=== PATIENT | female | born 1930 | race African-American/Black ===

== ENCOUNTER 2018-09-04 11:18 | Emergency (ER) | payer MEDICARE ==
[~2018-09-04] VITALS: Ht 165.1 cm; Wt 100.0 kg
[~2018-09-04 11:18] MED LIST: LOSA25TA2 PO; LOSA25TA41 PO
[2018-09-04] MEDS ORDERED: LIDOCAINE 1% 10 ML VIAL INJ ONE (11:30)
[2018-09-04] MEDS ORDERED: ACETAMINOPHEN 325 MG TABLET PO ONE (11:30)
[2018-09-04] MEDS ORDERED: AMLO10TA7 PO (11:37)
[2018-09-04] MEDS ORDERED: BACITRACIN 0.9 GM PACKET OINTMENT TP ONE ×2 (12:39→12:45)
[2018-09-04 13:31] VITALS: BP 172/75
== END 2018-09-04 13:33 | disposition home or self-care (01) ==
LOC: EMS 11:18
DX: S01.81XA Laceration without foreign body of other part of head, initial encounter (principal); M19.90 Unspecified osteoarthritis, unspecified site; E11.9 Type 2 diabetes mellitus without complications; I11.9 Hypertensive heart disease without heart failure; W06.XXXA Fall from bed, initial encounter; Y93.89 Activity, other specified; Y92.89 Other specified places as the place of occurrence of the external cause; Y99.8 Other external cause status
CPT/HCPCS: 12013; 70450; 70486; 82962; 99284; J3490

== ENCOUNTER 2018-09-15 12:25 | Emergency (ER) | payer MEDICARE ==
[~2018-09-15] VITALS: Ht 165.1 cm; Wt 93.6 kg
[~2018-09-15 12:25] MED LIST changes: +AMLO10TA7 PO; -LOSA25TA2 PO; -LOSA25TA41 PO
[2018-09-15] MEDS ORDERED: AmLODIPine BESYLATE 5 MG TABLET PO ONE (13:30)
[2018-09-15 13:45] VITALS: BP 163/66
== END 2018-09-15 13:53 | disposition home or self-care (01) ==
LOC: EMS 12:26
DX: S01.81XD Laceration without foreign body of other part of head, subsequent encounter (principal); I10 Essential (primary) hypertension; E11.9 Type 2 diabetes mellitus without complications; Z48.02 Encounter for removal of sutures; W18.39XD Other fall on same level, subsequent encounter